=== PATIENT | female | born 1960 | race Caucasian/White ===

== ENCOUNTER → 2017-03-14 | Outpatient (CLI) | payer OTHER ==
[~2017-03-14] MED LIST: ALIGN4 MG PO; ASPIRIN EC81 M1 PO; CALTRATE 600 +1 EACH PO; CARDIZEM CD120 MG PO; CARDIZEM CD180 MG PO; CARDIZEM CD300 MG PO; CRESTOR20 MG PO; DESYREL150 MG PO; EFFIENT10 MG PO; ELIQUIS5 MG PO; FISH OIL 1,001000 M1 PO; LO-DOSE ASPIRIN81 M1 PO; OSTEO BI-FLEX1 EAC1 PO; PACERONE 200 M200 M1 PO; PANTOPRAZOLE SO40 M1 PO; PROPAFENONE 22225 MG PO; RYTHMOL150 MG PO; SOTALOL160 MG PO; SYNTHROID50 MCG PO; ZOLOFT 50 MG TA50 M1 PO
== END ==
LOC: RAD 04:09
DX: Z12.31 Encounter for screening mammogram for malignant neoplasm of breast (principal)

== ENCOUNTER → 2017-03-21 | Outpatient (CLI) | payer OTHER | LOC: ULTRA 09:23 | DX: N63.0 Unspecified lump in unspecified breast (principal) ==